=== PATIENT | female | born 1990 | race Caucasian/White ===

== ENCOUNTER 2018-07-24 06:03 | Day surgery (SDC) | payer MEDICAID, SELFPAY ==
[2018-07-24] VITALS (7 sets, daily range): BP systolic 103–125; BP diastolic 66–77; PULSE 81–109; RESP 16–18; TEMP 36.3–36.7; O2SAT 98–100; BMI 29.0
--- NOTE | 2018-07-24 | POC_PTH ---
PATIENT: RAMÍREZ MARC [place] [facility] [place][id number] AGE/SX: 27/F ROOM: RE07/24/[address]: Dr. Tracy Johnson MD : 1990 BED: DIS: 07/24/2018 SPEC #: [id number] RECD: 07/24/18 13:57 STATUS: JULIANO MICHAEL #: [id number] MARC: 07/24/18 00:[address]: Tracy Johnson DEPT: SURGICAL PATHOLOGY RECD BY: Clark Padilla ENTERED: 07/24/18 13:58 SP TYPE: PROD CONC OTHR DR: No Primary Care Phys Tissues: Product of conception, NOS Procedures: Surgery Specimen Level IV HEADER OPERATION: Dilation and curettage suction PRE-OP DIAGNOSIS: Missed AB at six weeks TISSUE SUBMITTED: Products of conception MICROSCOPIC DIAGNOSIS Products of conception: [place]id[place], gestational endometrium and immature chorionic villi (products of conception). SJ:faustino 9/24/18 MICROSCOPIC DESCRIPTION Slides are reviewed. GROSS DESCRIPTION Received in fixative is one container labeled with the patient's name and designated products of conception. The specimen consists of multiple pieces of pink polk soft tissue that in aggregate measure 6 x 5 x 2 cm. tissue is not identified. Behavioral Health Counselor tissue is submitted in two cassettes. / SJ:rg 07/24/18 TC:5 CPT: 54862
[2018-07-24 06:32] LABS: Hematocrit 40.5 % (37-47); Hemoglobin 14.2 g/dl (12.0-15.0); Mean Corp Hgb Conc 35.1 g/gl (32-36); Mean Corpuscular Hgb 33.8 pg (27.0-32.0); Mean Corpuscular Volume 96.4 fL (81-99); Platelet Count 165 K/mm3 (150-450); RBC Distribution Width CV 12.8 % (11.6-14.6); RBC Distribution Width SD 44.2 fl (35.1-43.9); White Blood Count 6.5 K/mm3 (4.4-11.0)
[2018-07-24 06:36] LABS: Scan Indicated on CBC? Y/N NO
--- NOTE | 2018-07-24 08:16 | DCINST_ITS ---
Discharge Diet: No Restrictions Discharge Activity: Return to Normal Activity - after 24 hours May resume sexual activity in: 2 weeks Weight Bearing Status: Weight bearing as tolerated Call your doctor if you observe: Fever of 101 or Higher, Coldness, Increased Pain, Numbness or Tingling, Change in Color, Inability to urinate, Inability to have a bowel movement, Using more than one pad per hour, Shortness of breath, Fainting spells, Chest pain, Increased palpitations (irregular heartbeat), Uncontrolled pain Allergies/Adverse Reactions: Allergies Iodinated Contrast- Oral and IV Dye Allergy (Verified 07/23/18 13:59) Itching fluoxetine [From Prozac] Adverse Reaction (Verified 07/23/18 13:59) heartburn Medications to take at Discharge Fluconazole [Diflucan] 150 mg PO X1 #1 tab 07/24/18 The following prescriptions were given: Fluconazole [Diflucan] 150 mg PO X1 #1 tab Primary Care Physician: Care Physician,No Primary [Primary Care Provider] - Test Results: Test results from this visit will be discussed in further detail at your follow- up appointment, if applicable.
--- NOTE | 2018-07-24 08:16 | PCM.OPRPT ---
Report of Operation Date of Procedure: 07/24/18 Pre-Operative Diagnosis: Missed Post-Operative Diagnosis: Same Surgery/Procedure Performed:: Suction D&C Description of Surgical Findings:: Uterus c\w 6 weeks Type of Anesthesia:: MAC Specimen's removed: POC's Estimated Blood Loss (mL): 50ml Fluids Replaced: 800ml Description of Procedure: Patient taken to OR where MAC anesthesia placed. She was placed in dorsal lithotomy position, prepped & draped. Tenaculum used to grasp anterior lip of cervix. Cervix gently dilated. # 7 suction curette introduced. Sharp curettage gently performed with #1 curette. Repeat suction curettage performed. 1 additional pass with sharp curette performed to confirm not retained POC's. At end of procedure all instruments removed from vaginal cavity. Vaginal sweep performed. Patient tolerated the procedure well. - Complications None
== END 2018-07-24 09:23 | disposition home or self-care (01) ==
LOC: SDC 06:06 → AC 06:06
PROVIDERS: Visit Provider Obstetrics & Gynecology
PROC: (CPT 59820; principal; 2018-07-24 07:15)
DX: O02.1 Missed abortion (principal); K58.9 Irritable bowel syndrome, unspecified; Z3A.01 Less than 8 weeks gestation of pregnancy
CPT/HCPCS: 59820; 36415; 85027; 86850; 86900; 88305; 90384; J7120; J2790

== ENCOUNTER 2021-09-27 09:05 | Inpatient (IN) | payer MEDICAID, SELFPAY ==
[2021-09-27] VITALS (34 sets, daily range): BP systolic 93–123; BP diastolic 50–65; PULSE 85–106; RESP 18; TEMP 36.8–37.3; O2SAT 96–100; BMI 34.4
[2021-09-27] MEDS: Lactated Ringers 500 ML 999 ML IV (09:25)
[2021-09-27 09:37] LABS: Absolute Lymphocyte Count 1.67 X10^3/uL (0.83-4.51); Absolute Neutrophil Count 12.8 X10^3/uL (2.0-7.7); Basophil# 0.05 X10^3/uL; Basophil% 0.3 % (0-1); Eosinophil# 0.03 X10^3/uL; Eosinophils% 0.2 % (0-5); Hematocrit 38.4 % (37-47); Hemoglobin 13.3 g/dL (12.0-15.0); Lymphocyte # 1.67 X10^3/ul (0.83-4.51); Lymphocyte % 10.9 % (19-41); Mean Corp Hgb Conc 34.6 g/dL (32-36); Mean Corpuscular Hgb 33.3 pg (27.0-32.0); Mean Corpuscular Volume 96.2 fL (81-99); Mean Platelet Vol. 10.5 fl (6.2-12.0); Monocyte# 0.58 X10^3/uL; Monocyte% 3.8 % (0-10); NRBC Flagged by Analyzer 0 % (0-5); Neutrophil # 12.82 X10^3/uL (2.7-7.7); Neutrophil % 83.2 % (47-70); Platelet Count 248 K/mm3 (150-450); RBC Distribution Width SD 49.6 fl (35.1-43.9); Red Blood Count 3.99 M/mm3 (4.2-5.4); White Blood Count 15.4 K/mm3 (4.4-11.0)
[2021-09-27] MEDS: Lactated Ringers 1,000 ML 50 ML IV (09:56)
[2021-09-27] MEDS: fentaNYL-bupivacaine (epidural) 100 ML BAG EPIDURAL (10:40)
--- NOTE | 2021-09-27 11:11 | HP.PCM.OB_ITS ---
HPI - General General Date of Admission: 09/27/21 Date of Service: 10/04/21 Chief Complaint: labor HPI Narrative RAMÍREZ MARC, is a 30 F who presents Maternal Data Information Final JASWANT: 10/04/21 Gestational age: 39 PFSH PFSH Medical History Chlamydia Depression Fracture IBS (irritable bowel syndrome) Psoriasis Shingles Smoker Home Medications ferrous sulfate 325 mg PO DAILY 09/27/21 [History Last Taken 09/26/21 20:00 1 tab] (w/o vit A)-Fe fum-FA [ Care] 1 tab PO DAILY 09/27/21 [History Last Taken 09/26/21 20:00 1 tab] Allergy/AdvReac Type Severity Reaction Status Date / Time Iodinated Contrast Media Allergy Itching Verified 07/23/18 13:59 [Iodinated Contrast- Oral and IV Dye] fluoxetine [From Prozac] AdvReac heartburn Verified 07/23/18 13:59 Family History (Updated 09/27/21 @ 09:43 by Karina Alan) Father Lung cancer Grandmother Cancer Grandmother Diabetes Heart disease Surgical History (Updated 09/27/21 @ 09:40 by Karina Alan) H/O dilation and curettage H/O tooth extraction Hx of breast biopsy Social History Smoking Status: Current some day smoker History Elective abortions Hx Para 1 Spontaneous abortions Hx # Term Pregnancies Ectopic pregnancies Hx # Pregnancies Multiple births # of living children ROS Constitutional Constitutional: Denies fatigue, fever(s) or malaise Eyes Eyes: Denies change in vision ENT HEENT: Denies dizziness or headache(s) Cardiovascular Cardiovascular: Denies chest pain, dyspnea or lightheadedness Respiratory/Chest Respiratory/Chest: Denies cough or dyspnea Gastrointestinal Gastrointestinal: Denies change in bowel habits Genitourinary Genitourinary: Denies burning urination or genital lesions Integumentary Integumentary: Denies rash Neurologic Neurologic: Denies confusion, dizziness, headache(s), numbness or weakness Vital Signs Vital Signs Vital Signs: 09/27/21 08:56 09/27/21 08:58 09/27/21 10:07 Temperature 99.1 F Temperature Source Temporal Pulse Rate 97 98 96 Blood Pressure 104/56 L BP Systolic 104 BP Diastolic 56 Pulse Ox 98 98 100 09/27/21 10:09 09/27/21 10:12 09/27/21 10:14 Temperature Temperature Source Pulse Rate 93 106 H 96 Blood Pressure 118/59 L 116/61 BP Systolic 118 116 BP Diastolic 59 61 Pulse Ox 98 09/27/21 10:17 09/27/21 10:19 09/27/21 10:22 Temperature Temperature Source Pulse Rate 98 93 92 Blood Pressure 122/64 H BP Systolic 122 BP Diastolic 64 Pulse Ox 96 97 09/27/21 10:24 09/27/21 10:27 09/27/21 10:28 Temperature 98.7 F Temperature Source Temporal Pulse Rate 96 106 H Blood Pressure 106/61 BP Systolic 106 BP Diastolic 61 Pulse Ox 99 09/27/21 10:29 09/27/21 10:32 09/27/21 10:34 Temperature Temperature Source Pulse Rate 100 95 101 H Blood Pressure 111/61 111/57 L BP Systolic 111 111 BP Diastolic 61 57 Pulse Ox 98 09/27/21 10:37 09/27/21 10:39 09/27/21 10:42 Temperature Temperature Source Pulse Rate 99 96 93 Blood Pressure 118/63 BP Systolic 118 BP Diastolic 63 Pulse Ox 98 99 09/27/21 10:44 09/27/21 10:47 09/27/21 10:49 Temperature Temperature Source Pulse Rate 93 88 92 Blood Pressure 101/54 L 96/51 L BP Systolic 101 96 BP Diastolic 54 51 Pulse Ox 98 09/27/21 10:52 Temperature Temperature Source Pulse Rate 95 Blood Pressure BP Systolic BP Diastolic Pulse Ox 97 Weight Weight: 91.1 kg Body Mass Index (BMI) 34.4 Physical Exam Const alert and no apparent distress General Appearance: cooperative HEENT normocephalic Resp normal respiratory effort Cardio regular rate GI soft to palpation GI Narrative: gravid, nontender, appropriate for gestational age Extremity no calf tenderness General Extremity: edema Skin no wounds Rashes: No rashes noted Psych activity/motor behavior normal Labs Labs Labs: 2 Blood Type O NEGATIVE Antibody Screen NEGATIVE Hct 38.4 % (37-47) Hgb 13.3 g/dL (12.0-15.0) Assessment & Plan (1) 39 weeks gestation of : PLAN: Admit for labor. Epidural as needed. Estimated weight is less than 4500 g clinically and pelvis clinically adequate to expect vaginal delivery. (2) Spontaneous onset of labor:
[2021-09-27] MEDS: Oxytocin 30 units/NS 500 ml 30 UNITS/500 ML IV.SOLN 334 UNITS IV (12:50)
--- NOTE | 2021-09-27 13:01 | EX.PCM.OBRPT ---
Assessment & Plan (1) Spontaneous onset of labor: (2) (spontaneous vaginal delivery): (3) 39 weeks gestation of : Maternal Data Information Final JASWANT: 10/04/21 Gestational age: 39 0/7 Vaginal Delivery Maternal Presentation Maternal Presentation: Active Labor Operative Information Date of Procedure: 09/27/21 Pre-Operative Diagnosis: labor Post-Operative Diagnosis: same Surgery / Procedure Performed: Spontaneous Vaginal Delivery Type of Anesthesia: Epidural Special Medications: none Drain: Patel to straight drain Estimated Blood Loss: 200 Time of Delivery: 12:47 Findings Description of Procedure: A vigorous [female] infant was delivered OA over a small first-degree vaginal laceration. The remainder the infant was delivered with maternal pushing and gentle traction only in less than 15 seconds. The Pitocin infusion was initiated for active management of the third stage. The cord was clamped and cut [after 1 minute]. The infant was attended to by the waiting nursing staff. The placenta was delivered spontaneously and intact. The cervix and vagina were intact. The first-degree vaginal laceration was repaired with a single 3-0 Vicryl Rapide [id number] suture. Sponge and needle counts were correct. A vaginal sweep was completed by me. Presentation: Vertex Amniotic Membrane Rupture Type: Spontaneous Amniotic Fluid Description: Clear Placental Delivery Description: Spontaneous Placenta Disposition: [facility] Cord Vessel Description: 3 Vessels Cord Entanglement: None A Gender: Female (Luana) (1 minute): 8 (5 minute): 9 Delayed Cord Clamping: Yes Post Vaginal Delivery Medications Given After Delivery: IV Pitocin Episiotomy Description: None Laceration: 1st degree (Vaginal) Complication Complications: None
--- NOTE | 2021-09-27 19:20 | NURSING ---
Espinoza cath removed at 1600 after 10 cc NS removed from espinoza balloon
[2021-09-27] MEDS: Ibuprofen 600 MG Tablet PO (23:33)
[2021-09-28 03:26] VITALS: BP 100/52; PULSE 78; RESP 16; TEMP 36.7; O2SAT 96
[2021-09-28 07:48] VITALS: BP 117/52; PULSE 84; RESP 16; TEMP 36.2; O2SAT 97
--- NOTE | 2021-09-28 08:44 | PN.OBGYN_ITS ---
Subjective Subjective Denies complaints Objective Data Objective Data Vital Signs: Vital Signs Temp Pulse Resp BP Pulse Ox 97.2 F L 84 16 117/52 L 97 09/28/21 07:48 09/28/21 07:48 09/28/21 07:48 09/28/21 07:48 09/28/21 07:48 Oxygen Delivery Method Room Air Weight: 200 lb 13.458 oz Body Mass Index (BMI) 34.4 Intake & Output: Intake and Output for Last 24 Hours 09/26/21 09/27/21 09/28/21 23:59 23:59 23:59 Intake Total 2229.5 / 2229.5 Output Total 1500 / 1500 500 / 500 Balance 729.5 / 729.5 -500 / -500 Lab / Micro Data Result Diagrams: 09/27/21 09:25 Labs: Laboratory Results - last 24 hr 09/27/21 09:25: WBC 15.4 H, RBC 3.99 L, Hgb 13.3, Hct 38.4, MCV 96.2, MCH 33.3 H , MCHC 34.6, RDW Std Deviation 49.6 H, RDW Coeff of Joshua 14.0, Plt Count 248, MPV 10.5, Immature Gran % (Auto) 1.600 H, Neut % (Auto) 83.2 H, Lymph % (Auto) 10.9 L, [place] % (Auto) 3.8, Eos % (Auto) 0.2, Baso % (Auto) 0.3, Absolute Neuts (auto) 12.8 H, Absolute Lymphs (auto) 1.67, Nucleated RBC % 0 09/27/21 09:25: Blood Type O NEGATIVE, Antibody Screen NEGATIVE 09/27/21 17:15: Screen NEGATIVE, Baby's Blood Type A POSITIVE, Baby's MARVEL NEGATIVE Micro: Microbiology 09/27/21 09:15 Nasal Secretion SARS-CoV-2 Antigen (Rapid) - Final Physical Exam Const alert, oriented x3 and no apparent distress HEENT normocephalic GI soft to palpation, non-tender and non-distended GI Narrative: fundus firm, mid & below umbilicus Extremity normal to inspection and no calf tenderness Assessment & Plan (1) (spontaneous vaginal delivery): COMMENT: PPD#1 PLAN: Routine care
[2021-09-28 12:00] VITALS: BP 103/57; PULSE 76; RESP 18; TEMP 36.9; O2SAT 96
[2021-09-28 16:11] VITALS: BP 106/54; PULSE 76; RESP 16; TEMP 36.3; O2SAT 98
--- NOTE | 2021-09-28 19:30 | CASEMGMT ---
SW Note Information was obtained from chart, patient and FOB. Patient gave this freelance writer permission to speak to her in the presence of the FOB. Mom: Gita Sparrow now PNC: Dr. Bustillo, F Control: Patient reports no plans regarding control Baby: Luana Spears : 09/27/[birth year] Apgars 8/9 Weight: 4/13 ounces Algorithm Developer: Dr. Flannery and patient reports that it is going really good MOB and FOB have older child: Don age 9 Housing: Patient resides in a house in [place] with her boyfriend/FOB, son and Transportation: Patient has access to transportation and able to drive Supplies: Patient has a carseat, diapers, bassinet/crib and everything for the nb Supports: Patient's mother, Micheline and GODFREY Abdullahi Education: Patient graduated from high school. No learning disabilities. Patient has a Bachelors degree in Social work from [employer] Employment: Patient reports that she works a couple of nights a week at [employer]. Patient said that she enjoys the work. Patient said that she schedules her hours at night when the FOB is at home and watches the children. Patient reports she plans to take 12 weeks off work for FMLA from her job. Patient said that it is more financially taxing for her to work and pay daycare so she works a little and is a mom. Patient smiled when she talked about being a mom. Patient reports she has applied for WIC. No other agency involvement. FOB: Bradly Christianson Time Together: 10 years Involved at : FOB reports he will be involved at Employment: Patient is employed as a printer at [employer] Other children: Patient is Father to Don with patient and has another child, a older daughter, who he has no contact with. FOB MH/AOD/Domestic Violence: FOB reports none. Per DV screen completed by staffing and scheduling coordinator patient denied any DV Maternal MH History: Patient said that she had depression during her teen years. Patient said that her depression started at age 15-16 and was based on the situation she was living in. Patient said that when she became with Don she discontinued her psych medication. Patient said that it helped being out of the situation in the home. Patient said that she has been off meds from age 18-19 till currently. Patient reports no current medication, counseling or previous psych hospitalization. Patient reports no history of Post Depression. Patient and FOB were educated on Shaken Baby, Post Depression and Safe Sleeping. Patient denied Alcohol or drug history. SW provided patient with handout on post depression which included support phone numbers, web site, Information on depression and Anxiety during and Post period, and Help Me grow services. Patient and FOB voiced no concerns or issues. Patient was holding the and appeared to be bonding with the and would smile when talking about being a mom. RN voiced no concerns or issues regarding patient and nb. Plan: Home with nb Tressa RAINES
[2021-09-28 20:56] VITALS: BP 109/64; PULSE 76; RESP 18; TEMP 36.9
[2021-09-29 03:34] VITALS: BP 94/56; PULSE 76; RESP 18; TEMP 36.6
[2021-09-29 08:00] VITALS: BP 89/51; PULSE 68; RESP 18; TEMP 36.7
[2021-09-29] MEDS: Senna/Docusate Sodium 1 Tablet PO (09:00)
--- NOTE | 2021-09-29 10:48 | PCM.PN.OB ---
Subjective Subjective No complaints Objective Data Objective Data Vital Signs: Vital Signs Temp Pulse Resp BP Pulse Ox 98.0 F 68 18 89/51 L 98 09/29/21 08:00 09/29/21 08:00 09/29/21 08:00 09/29/21 08:00 09/28/21 16:11 Oxygen Delivery Method Room Air Weight: 200 lb 13.458 oz Body Mass Index (BMI) 34.4 Intake & Output: Intake and Output for Last 24 Hours 09/27/21 09/28/21 09/29/21 23:59 23:59 23:59 Intake Total 2229.5 / 2229.5 Output Total 1500 / 1500 500 / 500 Balance 729.5 / 729.5 -500 / -500 Lab / Micro Data Result Diagrams: 09/27/21 09:25 Micro: Microbiology 09/27/21 09:15 Nasal Secretion SARS-CoV-2 Antigen (Rapid) - Final Physical Exam Const alert, oriented x3 and no apparent distress HEENT normocephalic GI soft to palpation, non-tender and non-distended GI Narrative: fundus firm, mid & below umbilicus Extremity normal to inspection and no calf tenderness Assessment & Plan (1) (spontaneous vaginal delivery): COMMENT: PPD#2 PLAN: D/c home
--- NOTE | 2021-09-29 10:49 | PCM.DC ---
Discharge Instructions Diet Discharge Diet: No restrictions Activity Discharge Activity: May Shower May resume sexual activity in: 6 weeks Weight Bearing Status: Weight bearing as tolerated Dressing / Incision Call your doctor if you observe: Fever of 101 or Higher, Coldness, Increased Pain, Change in Color, Inability to urinate, Inability to have a bowel movement, Using more than 1 pad per hour, Shortness of breath, Dizziness, Fainting spells, Chest pain, Increased palpitations (irregular heartbeat), Calf discomfort and Uncontrolled pain Follow Up Care Please Follow Up With: Tracy Johnson MD When: Follow up in 2 and 6 weeks for visits. Test Results: Test results from this visit will be discussed in further detail at your follow-up appointment, if applicable. Discharge Plan Admission Admit Date/Time: 09/27/21 09:05 Primary Reason for Your Visit: Vaginal delivery Attending Provider: Graciela Bustillo Primary Care Provider: Care Physician,No Primary Discharge Orders/Prescriptions Prescriptions: New acetaminophen 500 mg Tablet 1,000 mg PO Q6H PRN PRN (Reason: Pain 1-10 Or Fever) Qty: 0 RF: 0 ibuprofen 600 mg Tablet 600 mg PO Q6H PRN PRN (Reason: Pain Score 1-3) Qty: 0 RF: 0 Continued (w/o vit A)-Fe fum-FA 40 mg iron-1 mg Tablet 1 tab PO DAILY RF: 0 ferrous sulfate 325 mg (65 mg iron) Tablet 325 mg PO DAILY RF: 0 Referrals / Follow Up: Care Physician,No Primary [Primary Care Provider] - Disposition Disposition (needs filled in before D/C Order can be placed): Home, Self Care
== END 2021-09-29 11:04 | disposition home or self-care (01) | DRG 560 ==
LOC: WP 09-28 07:30 → WPOUT 10-01 13:20
PROVIDERS: Admitting Provider Obstetrics & Gynecology; Referring Provider Obstetrics & Gynecology; Visit Provider Obstetrics & Gynecology
DX: O99.62 Diseases of the digestive system complicating childbirth (principal); K58.9 Irritable bowel syndrome, unspecified; O70.0 First degree perineal laceration during delivery; Z20.822 Contact with and (suspected) exposure to COVID-19; O99.334 Smoking (tobacco) complicating childbirth; F17.200 Nicotine dependence, unspecified, uncomplicated; Z3A.39 39 weeks gestation of pregnancy; Z37.0 Single live birth
CPT/HCPCS: 59050; 85025; 85461; 86850; 86900; 86901; 87426; 90384; 99218; J7120; G0378; J2790

== ENCOUNTER → 2025-02-16 | Outpatient (CLI) | payer MEDICAID, SELFPAY ==
[2025-02-16 15:11] LABS: Absolute Lymphocyte Count 2.23 X10^3/uL (0.83-4.51); Basophil# 0.05 X10^3/uL; Basophil% 0.6 % (0-1); Eosinophils% 1.3 % (0-5); Hematocrit 42.7 % (37-47); Hemoglobin 14.7 g/dL (12.0-15.0); Lymphocyte # 2.23 X10^3/ul (0.83-4.51); Lymphocyte % 28.1 % (19-41); Mean Corp Hgb Conc 34.4 g/dL (32-36); Mean Corpuscular Hgb 32.1 pg (27.0-32.0); Mean Corpuscular Volume 93.2 fL (81-99); Mean Platelet Vol. 11.1 fl (6.2-12.0); Monocyte# 0.52 X10^3/uL; Monocyte% 6.5 % (0-10); NRBC Flagged by Analyzer 0 % (0-5); Neutrophil # 5.01 X10^3/uL (2.7-7.7); Neutrophil % 63.1 % (47-70); Platelet Count 196 K/mm3 (150-450); RBC Distribution Width CV 13.2 % (11.6-14.6); RBC Distribution Width SD 44.7 fl (35.1-43.9); Red Blood Count 4.58 M/mm3 (4.2-5.4); White Blood Count 7.9 K/mm3 (4.4-11.0)
[2025-02-16 16:12] LABS: ALB/GLOB Ratio 1.5 RATIO (0.9-2.4); AST(SGOT) 23 U/L (<=31); Alanine Aminotransfer ALT/SGPT 27 U/L (<=34); Albumin, Serum 4.2 g/dL (3.5-5.0); Alkaline Phosphatase 60 U/L (35-104); Anion Gap 9 (5-15); BUN 7 mg/dL (4-19); BUN/Creat Ratio 7.7 RATIO (10-20); Calcium,Total 9.1 mg/dL (7.6-11.0); Carbon Dioxide 22.6 mmol/L (21.0-32.0); Chloride 105 mmol/L (98-108); Cholesterol 316 mg/dL (<=200); Creatinine, Serum 0.89 mg/dL (0.70-1.20); EST Glomerular Filtration Rate 88 (>60); Globulin 2.8 g/dL (2.2-4.2); Glucose 99 mg/dL (70-99); High Density Lipoprotein 47 mg/dL; Low Density Lipoprotein Calc. 237 mg/dL; Potassium 3.9 mmol/L (3.3-5.1); Sodium Level 137 mmol/L (133-145); Total Bilirubin 0.39 mg/dL (0.00-1.30); Triglycerides 159 mg/dL; Very Low Density Lipoprotein 32 mg/dL (5-40); cholesterol:hdl ratio screen 6.74
[2025-02-16 16:30] LABS: Iron 86 ug/dL (50-170); Magnesium 2.1 mg/dL (1.5-2.2)
[2025-02-16 16:31] LABS: Ferritin 93 ng/mL (22-378); Vitamin B12 574 pg/mL (180-914); Vitamin D,25 Hydroxy 19.9 ng/mL (30-100)
== END | disposition home or self-care (01) ==
PROVIDERS: Visit Provider Nurse Practitioner
DX: F41.1 Generalized anxiety disorder (principal)
CPT/HCPCS: 36415; 80053; 80061; 82306; 82607; 82728; 83540; 83735; 84207; 84443; 85025